=== PATIENT | female | born 1970 | race Caucasian/White ===

== ENCOUNTER 2020-11-18 10:23 | Outpatient (CLI) | payer BC, SELFPAY ==
--- NOTE | ~2020-11-18 | XR_ITS ---
EXAMINATION: XR UGIAC wo [facility] EXAM DATE: 11/18/2020 11:02 INDICATION: Functional dyspepsia . TECHNIQUE: Standard single and double contrast barium upper GI examination was performed. The DAP for this procedure was 0.5 Gycm2. There is no prior study for comparison. FINDINGS: There is no esophageal stricture, diverticulum or mass identified. Gastroesophageal juncti on is normal in appearance. Reflux was not demonstrated during this examination. The stomach has a normal appearance without evidence of mass lesion, ulceration or filling defect. T here is normal rugal fold pattern. The duodenum and duodenal sweep are normal in appearance. IMPRESSION: Normal exam. Reviewed, dictated and finalized at location B. CONDUCTOR IMPRESSION: Normal exam.
== END 2020-11-18 10:24 ==
PROVIDERS: PCP Physician Assistant; Visit Provider Physician Assistant
DX: K30 Functional dyspepsia (principal)
CPT/HCPCS: 74246